=== PATIENT | female | born 1940 | race Caucasian/White ===

== ENCOUNTER → 2016-09-30 | Outpatient (CLI) | payer MEDICARE, OTHER ==
[2015-08-06 08:54] VITALS: BP 146/66
[~2016-09-30] MED LIST: CALC600T23 PO; CARV6.252 PO; CHOL400T14 PO; CITA20TA5 PO; HYDR25TA9 PO; IRON1TAB30 PO; LACT1CAP29 PO; LOSA100T6 PO; LOVA20TA2 PO; MAGN400T3 PO; METF500T4 PO; MULT-208 PO; OMEP20TA8 PO; POTA20TA4 PO
--- NOTE | 2016-09-30 10:14 | RAD ---
MRI Thoracic Spine without contrast History: Back pain for 6 months, history of lumbar laminectomy Technique: Multiplanar, multi sequential noncontrast MR imaging was performed of the thoracic spine. Contrast: None Comparison: December 18, 2014 Findings: There is now fairly prominent edema of the T12 and L1 vertebral bodies, also fluid in the T12-L1 intervertebral disc space. The thoracic vertebral body stature is overall preserved. There is minimal edema of the anterior corners and mid to inferior thoracic spine. Thoracic cord caliber is within normal limits without focal signal abnormality. There are again multilevel shallow posterior protrusions at T2-3, T4-5, T5-T6, T6-7, T7-8, T8-T9, T12-L1, and also negligible protrusions at T9-10 and T10-11. There is multilevel mild posterior epidural lipomatosis as seen previously. There is overall mild attenuation of the thecal sac greatest at T7-T8, T4-5, and T2-3. No new significant thoracic spinal stenosis is identified. There is [id number] narrowing of the left T9-T10 neural foramen by facet degenerative change. There is multilevel negligible anterior spondylolisthesis at T2-3, T5-T6, T6-7, T7-8, T8-9. There is multilevel degenerative disc disease greatest about mid thoracic levels such as at T5-T6 to T7-T8. There is again large hemangioma of the T12 vertebral body. There is moderate to large hiatal hernia. Impression: 1. Since the 2014 exam, there has been development of fairly prominent edema of the T12 and L1 vertebral bodies, also nonspecific fluid in the T12-L1 intervertebral disc space. Findings could be reactive/degenerative in etiology unless there is clinical suspicion for infectious spondylitis which is not excluded based on the imaging features. 2. There are again multilevel shallow posterior protrusions, no new significant thoracic spinal stenosis. There is degenerative disc disease greatest about mid thoracic levels. There is multilevel mild abnormal alignment. 3. There is moderate to large hiatal hernia Electronically signed by: Mamadou Mckinney MD (09/30/2016 10:11 AM) [facility] [id number]
== END | disposition home or self-care (01) ==
LOC: MRI 09:03
PROVIDERS: ATTEND Specialist
DX: M51.34 Other intervertebral disc degeneration, thoracic region (principal); K44.9 Diaphragmatic hernia without obstruction or gangrene
CPT/HCPCS: 72146

== ENCOUNTER → 2017-06-15 | Outpatient (CLI) | payer MEDICARE, OTHER ==
[2017-06-15 15:56] LABS: ISTAT CREATININE 0.7 mg/dL (0.6-1.1)
[2017-06-15] MEDS: GADOBUTROL 7.5 MMOL/7.5 ML VIAL IV (15:56)
== END | disposition home or self-care (01) ==
LOC: KCIC MRI 15:03
DX: M51.36 Other intervertebral disc degeneration, lumbar region (principal); M43.16 Spondylolisthesis, lumbar region; M48.05 Spinal stenosis, thoracolumbar region; M25.78 Osteophyte, vertebrae; D18.09 Hemangioma of other sites
CPT/HCPCS: 72158; 82565; A9585

== ENCOUNTER → 2017-07-05 | Outpatient (CLI) | payer MEDICARE, OTHER ==
[~2017-07-05] MED LIST changes: -CALC600T23 PO; -CARV6.252 PO; -CHOL400T14 PO; -CITA20TA5 PO; +CONTRAST GIVEN MC; -HYDR25TA9 PO; -IRON1TAB30 PO; -LACT1CAP29 PO; +LIDOCAINE 1% Multi-Dose 50 ML VIAL. INJ; -LOSA100T6 PO; -LOVA20TA2 PO; -MAGN400T3 PO; -METF500T4 PO; -MULT-208 PO; -OMEP20TA8 PO; -POTA20TA4 PO
[2017-07-05] MEDS: LIDOCAINE WITH 8.4% SOD BICARB 3 ML DISP.SYRIN. INJ (09:40)
[2017-07-05] MEDS: IOHEXOL 180 MG/ML 10 ML VIAL. IJ (09:45)
== END | disposition home or self-care (01) ==
LOC: RAD 08:37
DX: M48.07 Spinal stenosis, lumbosacral region (principal); M41.86 Other forms of scoliosis, lumbar region; M77.8 Other enthesopathies, not elsewhere classified; K44.9 Diaphragmatic hernia without obstruction or gangrene; M43.26 Fusion of spine, lumbar region; M53.3 Sacrococcygeal disorders, not elsewhere classified
CPT/HCPCS: 72132; 72265; Q9965

== ENCOUNTER → 2017-07-22 | Outpatient (CLI) | payer MEDICARE, OTHER | END | disposition home or self-care (01) | LOC: PNCL 08:27 | DX: M54.16 Radiculopathy, lumbar region (principal); I11.9 Hypertensive heart disease without heart failure; J45.909 Unspecified asthma, uncomplicated | CPT/HCPCS: G0463 ==

== ENCOUNTER → 2017-08-30 | Outpatient (CLI) | payer MEDICARE, OTHER ==
[~2017-08-30] MED LIST changes: -CONTRAST GIVEN MC; -LIDOCAINE 1% Multi-Dose 50 ML VIAL. INJ; +LIDOCAINE 1% PF 2 ML VIAL.
== END | disposition home or self-care (01) ==
LOC: PNCL 12:59
DX: M48.062 Spinal stenosis, lumbar region with neurogenic claudication (principal); M96.1 Postlaminectomy syndrome, not elsewhere classified; M54.16 Radiculopathy, lumbar region; I11.9 Hypertensive heart disease without heart failure; K21.9 Gastro-esophageal reflux disease without esophagitis; E78.00 Pure hypercholesterolemia, unspecified; F32.9 Major depressive disorder, single episode, unspecified; J45.909 Unspecified asthma, uncomplicated; Z90.49 Acquired absence of other specified parts of digestive tract; Z88.5 Allergy status to narcotic agent; Z88.1 Allergy status to other antibiotic agents; Z90.710 Acquired absence of both cervix and uterus; Z96.653 Presence of artificial knee joint, bilateral; M19.90 Unspecified osteoarthritis, unspecified site; E11.9 Type 2 diabetes mellitus without complications; Z79.84 Long term (current) use of oral hypoglycemic drugs; Z98.890 Other specified postprocedural states
CPT/HCPCS: 63650; C1778

== ENCOUNTER → 2017-09-03 | Outpatient (CLI) | payer MEDICARE, OTHER | END | disposition home or self-care (01) | LOC: PNCL 11:59 | DX: M54.16 Radiculopathy, lumbar region (principal); I11.9 Hypertensive heart disease without heart failure; E11.9 Type 2 diabetes mellitus without complications; E78.00 Pure hypercholesterolemia, unspecified; K21.9 Gastro-esophageal reflux disease without esophagitis; J45.909 Unspecified asthma, uncomplicated | CPT/HCPCS: G0463 ==

== ENCOUNTER → 2018-01-06 | Outpatient (CLI) | payer MEDICARE, OTHER ==
[2017-07-05 10:49] VITALS: BP 124/66
[~2018-01-06] MED LIST changes: +BUDE0.25 NEB; +BUPIVACAINE MPF 0.25% 30 ML VIAL. ONE; +CALC600T23 PO; +CARV12.52 PO; +CARV6.252 PO; +CHOL400T14 PO; +CITA20TA6 PO; +HYDR25TA9 PO; +IOHEXOL 180 MG/ML 10 ML VIAL. ONE; +IRON1TAB30 PO; +LACT1CAP29 PO; -LIDOCAINE 1% PF 2 ML VIAL.; +LIDOCAINE 1% PF 2 ML VIAL. ONE; +LOSA100T7 PO; +LOVA20TA2 PO; +MAGN400T3 PO; +METF500T16 PO; +MULT-208 PO; +OMEP20TA8 PO; +POTA20TA4 PO; +methylPREDNISolone ACETATE 80 MG/ML VIAL. ONE
--- NOTE | 2018-01-07 03:01 | PAIN ---
DATE OF SERVICE: 01/06/2018 PROGRESS NOTE FOR PAIN CLINIC DIAGNOSES: 1. Lumbar radiculopathy with lumbar post-laminectomy syndrome and spinal stenosis with neurogenic claudication. 2. Right greater trochanteric bursitis. HISTORY OF PRESENT ILLNESS: The patient is a 77-year-old female who returns for followup status post recent spinal cord stimulator implant, which the patient did very well with. The patient reports her pain is still somewhat more noticeable than she had expected from the excellent results, she got from the temporary lead in the trial period spinal cord stimulator. The patient reports still decreased the pain by about 50% overall but not as good as it was when it was first implanted and not like the trial. The patient reports it has been reprogramed several times and we had her returned today for this complaint as well as some left hip joint pain that she has been complaining of as well. Mr. Adonay Norman from [email or web address] is here as well to examine the stimulator and reprogramed as it is necessary. The patient reports the pain is at 8 on a scale of 10 at its worst, 7-8 on average and a 5 at its least and is a 7 today. The patient reports it is an aching, tingling, radiating, not constant as it was previously but the left hip is very, very tender on the lateral aspect. She has had this treated with her orthopedic surgeon previously but good results as well. The patient reports no new motor or sensory deficits. Reports it awakens her from sleep but only about every 7 hours or so and does not awaken her every night. PHYSICAL EXAMINATION: VITAL SIGNS: The patient's blood pressure 129/71, pulse 71, respirations 16 and temperature 98.0 degrees Fahrenheit. Weight is 181 pounds. GENERAL: The patient is awake, alert, oriented, appropriate and very pleasant demeanor. The patient is accompanied by her spouse. HEENT: Head shows normocephalic and atraumatic. Extraocular movements are intact and symmetrical. Oral cavity: Mucous membranes are moist and pink. Dentition is intact. NECK: Shows anterior throat supple without palpable lymphadenopathy noted. Swallow reflex symmetrical. CHEST: Shows normal with inspection. Breath sounds clear to auscultation bilaterally. HEART: Shows S1 and S2 clear. No murmurs auscultated. ABDOMEN: Soft, nontender and nondistended. No palpable organomegaly is noted. No rebound or guarding demonstrated. BACK: Shows spine grossly in the midline. Normal-appearing thoracic kyphosis, some minor flattening of lumbar lordotic curvature. Well healed recent surgical scar and easily palpable spinal cord stimulator battery in the left lower paraspinous region, which has a well-healed surgical scar. No significant tenderness and has some very mild mobility. The patient's back shows good rotational motion as well as extension and flexion without exacerbation of pain. No tenderness over the sacrum or sacroiliac regions over the spinous processes. EXTREMITIES: The patient's lower extremities show deep tendon reflexes at 1+ in the patellar and tendo-calcaneus tendons are equal. Motor exam is strong with approximately 4 on a scale of 5, but equal and symmetrical dorsiflexion, extension, quadriceps and hamstring flexion bilaterally. The patient's left hip shows significant tenderness with palpation over the left greater trochanter, but is very severely tender with the patient withdrawing from the examining hand, right side is nontender. Peripheral pulses are 1+ posterior tibial. No peripheral edema is noted. Options were discussed with the patient. The patient's old chart was reviewed as well as her current medication regimen updated. Current review of systems updated today as well. We will first x-ray her back to evaluate the spinal cord stimulator lead placement. This was performed and shown to be in very good situation in the midline and posterior in the epidural space on lateral view with apparent movement of the leads inferiorly by about 1 vertebral level with each of them but moves symmetrically and each is identical to its position next to each other but inferior by about one spinal vertebral level. Mr. Adonay Norman will reprogrammed this today for the changes in the level, situation of the leads. Also discussed a left greater trochanteric bursa injection. The patient would like to proceed with this. She has done well with these in the past. Risks were discussed including but not limited to bleeding, infection, possibility of intravascular injection sequelae, spread of local anesthetic and numbness, side effects of steroid medication, exposure to fluoroscopy as well as poor results regarding pain control. The patient understands and wished to proceed. The patient will return to the clinic in approximately 2 weeks for followup, was counseled as to return appointment, activity level and side effects to be aware of. The patient also will contact [email or web address] regarding the spinal cord stimulator reprogramming within a few days as well as requested. DIAGNOSIS: Left greater trochanteric bursitis. PROCEDURE: Left greater trochanteric bursa injection using C-arm fluoroscopic guidance under sterile prep and drape using local anesthetic. MEDICATION INJECTED: A total of 80 mg Depo-Medrol plus total 2 mL of 0.25% bupivacaine after negative aspiration at the site and 1.5 mL of Isovue for contrast. CONDITION AT DISCHARGE: Stable. The patient tolerated the procedure well and had no complications. GIORGIO ANDERSON MD DR: ELDA/morena JOB#: [id number] / [id number]
== END | disposition home or self-care (01) ==
LOC: PNCL 13:23
PROVIDERS: ATTEND Anesthesiology
DX: M70.62 Trochanteric bursitis, left hip (principal); M48.062 Spinal stenosis, lumbar region with neurogenic claudication; M96.1 Postlaminectomy syndrome, not elsewhere classified; M70.61 Trochanteric bursitis, right hip; M54.16 Radiculopathy, lumbar region; Z88.2 Allergy status to sulfonamides; Z88.6 Allergy status to analgesic agent
CPT/HCPCS: 20610; 77002; J1040; J3490; Q9965

== ENCOUNTER → 2018-04-25 | Outpatient (CLI) | payer MEDICARE ==
[2017-07-05 10:49] VITALS: BP 124/66
[~2018-04-25] MED LIST changes: +ALBU2.5V8 INH; +BUPIVACAINE MPF 0.25% 10 ML VIAL. ONE; -BUPIVACAINE MPF 0.25% 30 ML VIAL. ONE; +CARV12.511 PO; -CARV12.52 PO; +CARV6.2511 PO; -CARV6.252 PO; +CYAN10005 PO; +HYDR-2145 PO; -HYDR25TA9 PO; -LIDOCAINE 1% PF 2 ML VIAL. ONE; +LOSA100T14 PO; -LOSA100T7 PO; +methylPREDNISolone ACETATE 40 MG/ML VIAL. ONE
--- NOTE | 2018-04-26 01:29 | PAIN ---
DATE OF SERVICE: 04/25/2018 PROGRESS NOTE FOR PAIN CLINIC DIAGNOSES: 1. Lumbar radiculopathy with post lumbar laminectomy syndrome, lumbar spinal stenosis with neurogenic claudication. 2. Bilateral greater trochanteric bursitis. HISTORY OF PRESENT ILLNESS: The patient is a 77-year-old female who returns for followup, last seen 01/06/2018. The patient had a spinal cord stimulator implanted in September 2017 and we did a greater trochanteric bursa injection on the left on 01/06/2018 with about 90% improvement for the first 2 months or so. The patient reports that after that, the pain began to return in the lateral aspect of the hip and now is bilateral, worse on the left, but present on the right as well with some radiation to the lateral thigh, mostly with walking and standing, changing positions, getting up from a seated position, especially. The patient reports it is aching and dull, becoming more severe at times, better with sitting or lying down, generally does not awaken her from sleep, but can, on the left side. The patient reports it is an 8 on a scale of 10 at its worst, 7 on average, 6 at its least and is a 6 today. The patient reports it is aching, stabbing, burning at times as well, becoming more intense with activity. The patient reports no new motor or sensory deficits, no new bowel or bladder incontinence. Initially, she was doing much better, walking, standing, sitting especially was much more comfortable. PHYSICAL EXAMINATION: VITAL SIGNS: Today, the patient's blood pressure is 123/66, pulse 76, respirations are 18, temperature is 97.5 degrees Fahrenheit and weight is 195 pounds. GENERAL: The patient is awake, alert, oriented, appropriate, very pleasant demeanor. The patient is accompanied by her . HEENT: Head shows normocephalic, atraumatic. Extraocular movements intact and symmetrical. Oral cavity: Mucous membranes moist and pink. Dentition is intact. NECK: Shows anterior throat supple without palpable lymphadenopathy noted. Swallow reflex symmetrical. CHEST: Shows normal on inspection. Breath sounds clear to auscultation bilaterally. HEART: Shows S1, S2 clear. No murmurs auscultated. ABDOMEN: Soft, nontender, nondistended. No palpable organomegaly is noted. No rebound or guarding demonstrated. BACK: Shows spine grossly in the midline. Slightly exaggerated thoracic kyphosis and minor flattening of lumbar lordotic curvature. Lumbar paraspinous muscle shows symmetrical on inspection, with palpation shows some mild tenderness in the inferior aspect of the lumbar paraspinous musculature, but only diffusely bilaterally. The patient has well-healed surgical scarring noted and easily palpable spinal cord stimulator as well without tenderness over the stimulator battery itself. EXTREMITIES: The patient's lower extremities show deep tendon reflexes at 1+ in the patellar and tendo calcaneus tendons. Motor exam is normal at 4/5, but equal and symmetrical dorsiflexion, extension, quadriceps and hamstring flexion. Peripheral pulses are 1+ posterior tibial. No peripheral edema is noted. The patient's lateral hip shows very significant tenderness, especially over the left side greater than the right on the lateral aspect of the greater trochanter, very tender with palpation with some radiation towards the knee on the lateral aspect of the thigh present bilaterally, again worse on the left than the right, but present bilaterally. Options were discussed with the patient. The patient's old chart was reviewed as her current medication regimen updated. Current review of systems updated today as well and we will proceed with bilateral greater trochanteric bursa injection with fluoroscopic guidance today. Risks were again discussed including, but not limited to, bleeding, infection, possibility of intravascular injection sequelae, spread of local anesthetic and numbness, side effects of steroid medication, exposure to fluoroscopy and poor results regarding pain control. The patient understands and wished to proceed. The patient will return to the clinic in approximately 2 weeks for followup, was counseled on his return appointment, activity level and side effects to be aware of. DIAGNOSIS: Greater trochanteric bursitis bilaterally. PROCEDURE: Bilateral greater trochanteric bursa injection using C-arm fluoroscopic guidance under sterile prep and drape using local anesthetic. MEDICATIONS INJECTED: A total of 120 mg Depo-Medrol plus total of 4 mL of 0.25% bupivacaine, 2 mL at each side after negative aspiration and 2 mL of Isovue for contrast. CONDITION ON DISCHARGE: Stable. The patient tolerated the procedure well, had no complications. GIORGIO ANDERSON MD DR: ELDA/morena JOB#: [id number] / [id number]
== END | disposition home or self-care (01) ==
LOC: PNCL 10:32
PROVIDERS: ATTEND Anesthesiology
DX: M70.61 Trochanteric bursitis, right hip (principal); M70.62 Trochanteric bursitis, left hip; M48.062 Spinal stenosis, lumbar region with neurogenic claudication; M96.1 Postlaminectomy syndrome, not elsewhere classified; M54.16 Radiculopathy, lumbar region; Z88.2 Allergy status to sulfonamides; Z88.5 Allergy status to narcotic agent
CPT/HCPCS: 20610; 77002; J1030; J1040; J3490; Q9965; 20605

== ENCOUNTER → 2018-05-30 | Outpatient (CLI) | payer MEDICARE, OTHER ==
[2017-07-05 10:49] VITALS: BP 124/66
--- NOTE | 2018-05-30 22:56 | PAIN ---
DATE OF SERVICE: 05/30/2018 DIAGNOSES: 1. Lumbar radiculopathy with lumbar post-laminectomy syndrome and lumbar spinal stenosis with neurogenic claudication. 2. Bilateral greater trochanteric bursitis. HISTORY OF PRESENT ILLNESS: The patient is a 77-year-old female who returns for followup status post spinal cord stimulator placement, which was done on 10/08/2017. The patient had permanent implant at that time, returned at last visit in 04/25/2018 with significant pain in bilateral lateral hips. The patient had bilateral trochanteric bursa injection with very good results, about 90% improvement within 2 weeks. The pain was slowly returning in both the legs, the patient reports now worse on the left side than the right, difficulty with sleeping secondary to the pain, which is usually on her left side as she tosses and turns at night and it is keeping her from sleep. The patient reports that initially she was increasing distance walking, doing greater activity at home and traveling and sleeping better, but now the pain returning. The patient reports it is 9 on a scale of 10 at its worst, 8 on average, 6 at its least and is 8 today. The patient reports it is aching, radiating, becoming more severe, more intense, again worse on the left side, better with standing as well as better with lying down as well, especially on the left side. PHYSICAL EXAMINATION: VITAL SIGNS: The patient's blood pressure is 109/60, pulse 68, respirations 16, temperature 98.4 degrees Fahrenheit, weight is 180 pounds. GENERAL: The patient is awake, alert, oriented, appropriate, very pleasant demeanor. HEENT: Head is normocephalic, atraumatic. Extraocular movements are intact and symmetrical. Oral cavity: Mucous membranes moist and pink. Dentition is intact. NECK: Shows anterior throat supple without palpable lymphadenopathy noted. Swallow reflex symmetrical. CHEST: Shows normal with inspection. Breath sounds clear to auscultation bilaterally. HEART: Shows S1, S2 clear. No murmurs auscultated. ABDOMEN: Soft, nontender, nondistended. No palpable organomegaly is noted. No rebound or guarding demonstrated. BACK: The patient's back shows spine grossly in the midline. Normal-appearing thoracic kyphosis and lumbar lordotic curvature with some flattening of lumbar lordotic distribution, but well-healed surgical scarring from recent spinal cord stimulator placement. EXTREMITIES: The patient's lower extremities show deep tendon reflexes 1+ in the patellar and tendo calcaneus tendons. Motor exam is strong with approximately 4 on a scale of 5, but equal and symmetrical dorsiflexion, extension, quadriceps and hamstring flexion without abnormalities. Peripheral pulses are 1+ posterior tibia. No peripheral edema is noted bilaterally. Over the lateral aspect of the greater trochanters bilaterally there is significant tenderness with palpation, again worse on the left side than the right, but significant tenderness without specific radiation. The patient does show some tenderness with standing and abducting the legs, both left and right to fairly equal degree as far as pain, but again the patient reports the pain generally worse on the left side. Options were discussed with the patient. The patient's old chart was reviewed as her current medication regimen updated. Current review of systems updated today as well. We will proceed with bilateral greater trochanteric bursa injections under fluoroscopic guidance. Risks were again discussed including, but not limited to bleeding, infection, possibility of intravascular injection sequelae, spread of local anesthetic and numbness, side effects of steroid medication, exposure to fluoroscopy and poor results regarding pain control. The patient understands and wished to proceed. The patient will return to clinic in approximately 2 weeks for followup, was counseled on return appointment, activity level and side effects to be aware of. DIAGNOSIS: Bilateral greater trochanteric bursitis. PROCEDURES: Bilateral greater trochanteric bursa injection using C-arm under fluoroscopic guidance under sterile prep and drape using local anesthetic. MEDICATION INJECTED: A total of 120 mg Depo-Medrol, 60 mg per side and total of 4 mL of 0.25% bupivacaine, 2 mL per side with negative aspiration at each injection site as well as a total of 2 mL of Isovue for contrast. CONDITION AT DISCHARGE: Stable. The patient tolerated the procedure well, had no complications. GIORGIO ANDERSON MD DR: ELDA/morena JOB#: [id number] / [id number]
== END | disposition home or self-care (01) ==
LOC: PNCL 10:32
PROVIDERS: ATTEND Anesthesiology
DX: M70.61 Trochanteric bursitis, right hip (principal); M70.62 Trochanteric bursitis, left hip; M96.1 Postlaminectomy syndrome, not elsewhere classified; M48.062 Spinal stenosis, lumbar region with neurogenic claudication; M54.16 Radiculopathy, lumbar region; Z88.2 Allergy status to sulfonamides; Z88.5 Allergy status to narcotic agent
CPT/HCPCS: 20610; 77002; J1030; J1040; J3490; Q9965; 20605

== ENCOUNTER → 2018-06-29 | Outpatient (CLI) | payer MEDICARE, OTHER ==
[2017-07-05 10:49] VITALS: BP 124/66
--- NOTE | 2018-06-30 00:52 | PAIN ---
DATE OF SERVICE: 06/29/2018 PROGRESS NOTE FOR PAIN CLINIC DIAGNOSES: 1. Lumbar radiculopathy with post-lumbar laminectomy syndrome, spinal stenosis with neurogenic claudication. 2. Bilateral greater trochanteric bursitis. HISTORY OF PRESENT ILLNESS: The patient is a 77-year-old female who returns for followup status post spinal cord stimulator implantation and is doing quite well with this. The patient reports about 90% improvement overall. She had her program modified yesterday as she was having some increased pain in her low back, but is doing much better today. The patient reports her main complaint is bilateral lateral hip pain and she has had previously responded very well to greater trochanteric bursa injections. Most recently, it was on 05/30/2018. The patient reports about 95% improvement with that. The patient reports the pain is returning now, mostly noticed with walking, standing and stooping down, especially reaching to her right side or reaching to the right side lower than her knee. She reports the pain is significant at that point. The patient reports it is aching and tingling, sometimes radiating, sometimes constant, severe, although she has been walking with much better ease and comfort. She walked the entire distance of the [employer] recently and reports she could never have done this before her stimulator. The patient reports it as a 9 on a scale of 10 at its worst, 8 on average, 7 at its least over the past week and again limited to the lateral hips. The patient reports she is sleeping well at night. It does not awaken her from sleep, even when she is laying on her right or left side. No new motor or sensory deficits, bit better with distance walking, doing household activities and travelling much easier and with greater ease and comfort. PHYSICAL EXAMINATION: VITAL SIGNS: The patient's blood pressure is 140/65, pulse 70, respirations 18 and temperature 98.4 degrees Fahrenheit. Height 5 feet 4 inches, weight is 175 pounds. GENERAL: The patient is awake, alert, oriented and appropriate. She has a very pleasant demeanor. HEENT EXAMINATION: Shows normocephalic, atraumatic. Extraocular movements are intact and symmetrical. Oral cavity, mucous membranes are moist and pink. Dentition is intact. NECK: Shows anterior throat supple, without palpable lymphadenopathy noted. Swallow reflex is symmetrical. CHEST: Normal on inspection. Breath sounds are clear to auscultation bilaterally. HEART: Shows S1, S2 clear. No murmurs auscultated. ABDOMEN: Soft, nontender and nondistended. No palpable organomegaly is noted. No rebound or guarding demonstrated. BACK: Shows the spine grossly in the midline. Normal-appearing thoracic kyphosis and some minor flattening of the lumbar lordotic curvature, and well-healed surgical scars noted in the left paramedian aspect from the spinal cord stimulator generator. EXTREMITIES: The patient's lower extremities shows deep tendon reflexes at 1+ in the patellar and tendo calcaneus tendons are equal. Motor exam is approximately 4 on a scale of 5, but symmetrical and equal bilaterally. With palpation over the greater trochanter, there is significant tenderness on the left side compared to the right; right is moderately tender, but still fairly significant and the left side is very severely tender with palpation with some minor radiation to the lateral inferior thigh on the left, but not the right. Peripheral pulses are 1+ posterior tibial. No peripheral edema bilaterally. Options were discussed with the patient. The patient's old chart was reviewed as was her current medication regimen updated. Current review of systems updated today as well. We will proceed with bilateral greater trochanteric bursa injections under fluoroscopic guidance. Risks were again discussed, including, but not limited to bleeding, infection, possibility of intravascular ejection sequelae, spread of local anesthetic and numbness, side effects of steroid medication, exposure to fluoroscopy and poor results regarding pain control. The patient understands and wishes to proceed. The patient will return to the clinic in approximately 2 weeks for followup. She was counseled as to her return appointment, activity level and side effects to be aware of. DIAGNOSES: Bilateral greater trochanteric bursitis. PROCEDURES: Bilateral greater trochanteric bursa injection using C-arm fluoroscopic guidance under sterile prep and drape using local anesthetic. MEDICATIONS INJECTED: A total of 120 mg of Depo-Medrol plus 3 mL total of contrast. CONDITION ON DISCHARGE: Stable. The patient tolerated the procedure well, had no complications. GIORGIO ANDERSON MD DR: ELDA/morena JOB#: [id number] / [id number]
== END | disposition home or self-care (01) ==
LOC: PNCL 10:31
PROVIDERS: ATTEND Anesthesiology
DX: M70.61 Trochanteric bursitis, right hip (principal); M70.62 Trochanteric bursitis, left hip; M48.062 Spinal stenosis, lumbar region with neurogenic claudication; M54.16 Radiculopathy, lumbar region; M96.1 Postlaminectomy syndrome, not elsewhere classified; Z88.2 Allergy status to sulfonamides; Z88.5 Allergy status to narcotic agent
CPT/HCPCS: 20610; 77002; J1030; J1040; J3490; Q9965; 20605

== ENCOUNTER → 2018-09-01 | Outpatient (CLI) | payer MEDICARE, OTHER ==
[2017-07-05 10:49] VITALS: BP 124/66
[~2018-09-01] MED LIST changes: -BUPIVACAINE MPF 0.25% 10 ML VIAL. ONE; -IOHEXOL 180 MG/ML 10 ML VIAL. ONE; -methylPREDNISolone ACETATE 40 MG/ML VIAL. ONE; -methylPREDNISolone ACETATE 80 MG/ML VIAL. ONE
--- NOTE | 2018-09-01 11:52 | PAIN ---
DATE OF SERVICE: 09/01/2018 DIAGNOSES: Lumbar radiculopathy with lumbar post-laminectomy syndrome, spinal stenosis with neurogenic claudication and bilateral greater trochanteric bursitis. HISTORY OF PRESENT ILLNESS: The patient is a 77-year-old female who returns for followup status post spinal cord stimulator placement about 1 year ago. The patient reports she also has had significant pain in the greater trochanteric bursa, the left greater than right. We had performed greater trochanteric bursa injections, which she did well with about 80% improvement only for about 2 weeks or so. The patient reports she does not wish any further injections at this time as the pain relief is not lasting long enough, but still has some significant pain in the back and legs. She is having reprogramming today done with Mr. Adonay Norman from [employer] for the spinal cord stimulator. The patient reports pain is a 9 on a scale of 10 at its worst in the past week, 8 on average, 7 at its least and is a 7 today. The patient reports it is a tingling, aching across the low back, into the hips bilaterally, again worse on the left than the right. The patient reports no new motor or sensory deficits, no new bowel or bladder incontinence or other complaints. Worse with standing, walking and better with sitting. Initially, she had increased her distance walking and still feels like she is doing quite well with the spinal cord stimulator with about 80% improvement from that overall. The patient reports no new changes. No new bowel or bladder incontinence or other complaints. PHYSICAL EXAMINATION: VITAL SIGNS: The patient's blood pressure is 126/61, pulse 62, respirations 16, temperature 97.9 degrees Fahrenheit. GENERAL: The patient is awake, alert, oriented, appropriate, very pleasant demeanor. The patient is accompanied by her . HEENT: Head shows normocephalic, atraumatic. Extraocular movements are intact and symmetrical. Oral cavity: Mucous membranes moist and pink. Dentition intact. NECK: Shows anterior throat supple without palpable lymphadenopathy noted. Swallow reflex symmetrical. CHEST: Shows normal on inspection. Breath sounds are clear to auscultation bilaterally. HEART: Shows S1, S2 clear. No murmurs auscultated. ABDOMEN: Soft, nontender, nondistended. No palpable organomegaly is noted. No rebound or guarding demonstrated. BACK: Shows spine grossly in the midline. Well-healed surgical scarring is noted in the lumbar distribution as well as easily palpable spinal cord stimulator generator to the left of midline, which is nontender with palpation. EXTREMITIES: Lower extremities show deep tendon reflexes at 1+ in the patellar and tendo calcaneus tendons. Motor exam is strong with 4/5 dorsiflexion, extension, quadriceps and hamstring flexion, but equal and symmetrical. Peripheral pulses are 1+ posterior tibial. No peripheral edema is noted bilaterally. Options were discussed with the patient. The patient's old chart was reviewed as his current medication regimen updated. Current review of systems updated today as well. We will hold on any further injections at this time. The patient will have the reprogramming performed today with the spinal cord stimulator and continue strengthening and stretching exercises. We will have her follow up in approximately 2 weeks or sooner if the spinal cord stimulator is not covering some of the pain in the lower extremities as well. The patient will maintain her activity level as tolerated also. GIORGIO ANDERSON MD DR: ELDA/morena JOB#: [id number] / [id number]
== END | disposition home or self-care (01) ==
LOC: PNCL 09:08
PROVIDERS: ATTEND Anesthesiology
DX: M48.062 Spinal stenosis, lumbar region with neurogenic claudication (principal); M54.16 Radiculopathy, lumbar region; M96.1 Postlaminectomy syndrome, not elsewhere classified; M70.62 Trochanteric bursitis, left hip; M70.61 Trochanteric bursitis, right hip
CPT/HCPCS: G0463

== ENCOUNTER → 2019-08-25 | Outpatient (CLI) | payer MEDICARE, OTHER ==
[2017-07-05 10:49] VITALS: BP 124/66
[~2019-08-25] MED LIST changes: +ALPR1TAB6 PO; +CYAN-25 PO; -CYAN10005 PO; +FERR142T13 PO; -MAGN400T3 PO; +MAGN400T5 PO; +OXYC1TAB19 PO; +TRAZ-118 PO
== END | disposition home or self-care (01) ==
LOC: LAB 14:01
PROVIDERS: ATTEND Orthopaedic Surgery
DX: Z11.59 Encounter for screening for other viral diseases (principal); M70.42 Prepatellar bursitis, left knee; Z88.2 Allergy status to sulfonamides; Z88.5 Allergy status to narcotic agent
CPT/HCPCS: C9803; U0003; 36415

== ENCOUNTER 2019-08-29 08:25 | Day surgery (SDC) | payer MEDICARE, OTHER ==
[~2019-08-29] VITALS: Ht 163.8 cm; Wt 80.5 kg
[~2019-08-29 08:25] MED LIST changes: +DEXAMETHASONE SOD PHOS 4 MG/ML VIAL ONE; +FAMOTIDINE 20 MG/2 ML VIAL ONE; +IV RINGERS,LACTATED 1000ML 1,000 ML IV SCH; +LIDOCAINE 2% PF 5 ML VIAL. ONE; +ONDANSETRON PF 4 MG/2 ML VIAL. ONE; -OXYC1TAB19 PO; +PROCHLORPERAZINE 10 MG/2 ML VIAL. IV PRN; +PROPOFOL 10 MG/ML (20ML) VIAL. IV ONE; +fentaNYL PF VIAL 100 MCG/2 ML VIAL IV PRN
[2019-08-29] MEDS ORDERED: INSULIN LISPRO 100 UNIT/ML 3ML VIAL for OP,RR ONLY. SQ PRN (09:00)
--- NOTE | 2019-08-29 09:07 | EKG ---
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
[2019-08-29 09:15] LABS: BASO % 0 % (0-3); EOS # 0.2 x10^3/uL (0.0-0.7); EOS % 3 % (0-3); HEMATOCRIT 36.9 % (36.0-47.0); HEMOGLOBIN 12.8 g/dL (12.0-15.5); LYMPH # 1.6 x10^3/uL (1.0-4.8); LYMPH % 21 % (24-48); MEAN CORPUSCULAR HEMOGLOBIN 32 pg (25-35); MEAN CORPUSCULAR HGB CONC 35 g/dL (31-37); MEAN CORPUSCULAR VOLUME 92 fL (79-100); MONO # 0.6 x10^3/uL (0.0-1.1); MONO % 8 % (0-9); NEUT # 5.1 x10^3/uL (1.8-7.7); NEUT % 68 % (31-73); PLATELET COUNT 246 x10^3/uL (140-400); RED BLOOD COUNT 4.03 x10^6/uL (3.50-5.40); RED CELL DISTRIBUTION WIDTH 13.3 % (11.5-14.5); WHITE BLOOD COUNT 7.6 x10^3/uL (4.0-11.0)
[2019-08-29 09:25] LABS: CALCIUM 9.2 mg/dL (8.5-10.1); CREATININE 0.7 mg/dL (0.6-1.0); GFR 80.9; POTASSIUM 4.1 mmol/L (3.5-5.1)
[2019-08-29] MEDS ORDERED: ROPIVacaine 0.2% PF 10 ML VIAL. ONE (09:37)
[2019-08-29] MEDS ORDERED: GLYCOPYRROLATE 1 MG/5 ML VIAL. ONE (09:53)
[2019-08-29] MEDS ORDERED: ceFAZolin 2GM PREMIX 2 GM/50 ML BAG IV ONE (10:00)
[2019-08-29] MEDS ORDERED: fentaNYL PF VIAL 100 MCG/2 ML VIAL ONE (10:04)
[2019-08-29] MEDS ORDERED: SEVOFLURANE 61 TO 120 MINUTES. IH ONE (10:26)
[2019-08-29] MEDS ORDERED: OXYC1TAB19 PO (11:25)
--- NOTE | 2019-08-29 11:27 | DISCH ---
DISCHARGE INSTRUCTIONS Condition on Discharge Condition on Discharge: Stable Activity After Discharge Activity Instructions for Disc: Progressive ambulation Weight Bearing Status after Di: As tolerated Diet after Discharge Diet after Discharge: Diabetic No Calorie Level Wound Incision Care Wound/Incision Care: Change dressing (May remove dressing in 2 days may then shower no soaking until sutures removed) Contacting the [facility] after DC Call your doctor for: Concerns you may have Follow-Up Follow up with: Dr. Morales 7 to 10 days AYSHA MORALES MD Aug 29, 2019 11:27
[2019-08-29] MEDS ORDERED: oxyCODONE/APAP 7.5/325 1 TAB TABLET PO ONE (11:30)
[2019-08-29 11:45] VITALS: BP 152/62
--- NOTE | 2019-08-29 16:07 | PDOC4 ---
Operative Note Operative Note Date of surgery: 08/29/2019 Preoperative diagnosis: Refractory trochanteric bursitis left hip Postoperative diagnosis: Same Operative procedure: Left hip arthroscopy release of iliotibial band debridement trochanteric bursa Surgeon: Carmen Anesthesia: General Estimated blood loss: 15 cc Complications: None Operative indications: Please see my orthopedic clinic note for detailed operative indications but note that Verenice has undergone multiple injections for trochanteric bursitis but with refractory return of her pain despite injections stretching physical therapy activity modification. We have talked about the operative treatment and release of the iliotibial band debridement of the bursa and the possibility of continued pain weakness infection nerve or blood vessel damage among others. She is severely limited in her pain and does want to proceed with more definitive treatment having given informed consent Operative text: Patient was identified procedure verified patient placed in the supine position on the operating table. After adequate amounts of general anesthesia were administered she was placed in the decubitus position left side up using the Stulberg hip positioner all bony prominences were well-padded and the left hip was prepped and draped in standard sterile fashion. After timeout was performed patient procedure identified and verified arthroscopic portals were placed proximal and distal to the greater trochanter which was definitively located with a spinal needle. After visualization of the iliotibial band longitudinal release was carried out with the bipolar electrocautery it spread open nicely and debridement of the trochanteric bursa was carried out with the arthroscopic shaver and bipolar electrocautery and release was carried out from distal to the greater trochanter where vastus lateralis fascia was visualized to the muscle tendon junction area of the vastus medialis and the hip was taken through external/internal rotation to verify release of the pressure on the trochanter. Arthroscopic fluid was drained and portals closed with nylon suture sterile dressings were applied patient was returned to recovery room in stable condition having tolerated procedure well AYSHA MALIK MD Aug 29, 2019 16:07
== END 2019-08-29 12:40 | disposition home or self-care (01) ==
LOC: SURG 08:25
PROVIDERS: ATTEND Orthopaedic Surgery
DX: M70.62 Trochanteric bursitis, left hip (principal); G43.909 Migraine, unspecified, not intractable, without status migrainosus; I10 Essential (primary) hypertension; E78.00 Pure hypercholesterolemia, unspecified; J45.909 Unspecified asthma, uncomplicated; K21.9 Gastro-esophageal reflux disease without esophagitis; K44.9 Diaphragmatic hernia without obstruction or gangrene; D64.9 Anemia, unspecified; F32.9 Major depressive disorder, single episode, unspecified; E11.42 Type 2 diabetes mellitus with diabetic polyneuropathy; Z90.49 Acquired absence of other specified parts of digestive tract; Z96.653 Presence of artificial knee joint, bilateral; Z79.899 Other long term (current) drug therapy; Z90.710 Acquired absence of both cervix and uterus; Z79.84 Long term (current) use of oral hypoglycemic drugs
CPT/HCPCS: 29999; 36415; 80048; 82962; 85025; 93005; A7015; J0696; J1100; J2405; J2704; J2795; J3010; J3490; J0690

== ENCOUNTER → 2019-10-11 | Outpatient (CLI) | payer MEDICARE, OTHER ==
[~2019-10-11] MED LIST changes: +BUPIVACAINE MPF 0.25% 10 ML VIAL. ONE; -DEXAMETHASONE SOD PHOS 4 MG/ML VIAL ONE; -FAMOTIDINE 20 MG/2 ML VIAL ONE; +IOHEXOL 180 MG/ML 10 ML VIAL. ONE; -IV RINGERS,LACTATED 1000ML 1,000 ML IV SCH; -LIDOCAINE 2% PF 5 ML VIAL. ONE; -ONDANSETRON PF 4 MG/2 ML VIAL. ONE; +OXYC1TAB19 PO; -PROCHLORPERAZINE 10 MG/2 ML VIAL. IV PRN; -PROPOFOL 10 MG/ML (20ML) VIAL. IV ONE; -fentaNYL PF VIAL 100 MCG/2 ML VIAL IV PRN; +methylPREDNISolone ACETATE 80 MG/ML VIAL. ONE
--- NOTE | 2019-10-11 11:13 | PAIN ---
DATE OF SERVICE: 10/11/2019 PROGRESS NOTE FOR PAIN CLINIC DIAGNOSES: 1. Lumbar radiculopathy with lumbar post-laminectomy syndrome, and lumbar spinal stenosis with neurogenic claudication. 2. Bilateral greater trochanteric bursitis. 3. Left sacroiliitis. HISTORY OF PRESENT ILLNESS: The patient is a 78-year-old female who returns for followup status post spinal cord stimulator placement. The patient recently had an iliotibial release on the left hip with her orthopedic surgeon, Dr. Morales about a month ago with a left hip arthroscopy. The patient reports she is improved, but still some soreness over the general left hip area since the surgery itself. The patient has done good rehabilitation, feels that she is doing much better with respect to her hip, but the pain is persistent in the low posterior aspect of the hip and the back. The patient reports that 9 on a scale of 10 at its worst over the past week, 7 on average, 3 at its least and is a 7 today. The patient reports it is aching, severe at times, radiating, worse with walking, standing, changing positions, also sitting for prolonged periods. Generally awaken her from sleep about once every 4-5 hours, but she has had taken a muscle relaxer, which has been helping her sleep recently. The patient reports no new motor or sensory deficits. No radiation to lower extremity significantly. The patient has had a spinal cord stimulator, which is working well and reports she would like to have it examined as well and possibly readjusted. The patient reports no new motor or sensory deficits or other complaints. PHYSICAL EXAMINATION: VITAL SIGNS: The patient's blood pressure 132/64, pulse 67, respirations 16, temperature 98.1 degrees Fahrenheit, weight is 177 pounds. GENERAL: The patient is awake, alert, oriented, appropriate, very pleasant demeanor. The patient is accompanied by her . HEENT: Shows normocephalic, atraumatic. Extraocular movements are intact and symmetrical. Oral cavity: Mucous membranes moist and pink. Dentition is intact. NECK: Shows anterior throat supple without palpable lymphadenopathy noted. Swallow reflex symmetrical. CHEST: Shows normal on inspection. Breath sounds are clear. No rales, rhonchi or wheezes auscultated. HEART: Shows S1, S2 clear. No murmurs auscultated. ABDOMEN: Soft, nontender, nondistended. No palpable organomegaly is noted. No rebound or guarding demonstrated. BACK: Shows spine grossly in the midline. Normal appearing thoracic kyphosis and minor flattening of lumbar lordotic curvature. Lumbar paraspinous muscle shows symmetrical with inspection with a well-healed surgical scarring noted. Easily palpable stimulator generator is palpable in the left lumbar paraspinous musculature as well with well-healed surgical scar is nontender. The patient's left sacroiliac region shows significant tenderness with palpation over the posterior superior iliac spine and inferior to this in the sacroiliac region itself, but nontender on the right. No specific radiation is demonstrated. The patient has good rotational motion of lumbar spine, both laterally as well as extension and flexion without significant increase in pain. EXTREMITIES: The patient's lower extremities show deep tendon reflexes at 1+ in patellar and tendo calcaneus tendons. Motor exam is approximately 4 on a scale of 5, but symmetrical with dorsiflexion, extension, quadriceps and hamstring flexion. The patient is using a walker to ambulate. Peripheral pulses are 1+ posterior tibia. No peripheral edema is noted. Options were discussed with the patient. The patient's old chart was reviewed as her current medication regimen updated. Current review of system updated today as well and we will proceed with a left sacroiliac joint injection today with fluoroscopic guidance. Risks were discussed including but not limited to bleeding, infection, possibility of intravascular injection sequelae, spread of local anesthetic and numbness, side effects of steroid medication, exposure to fluoroscopy and poor results regarding pain control. The patient understands and wished to proceed. The patient will return to clinic in approximately 2 weeks for followup. She was counseled on return appointment, activity level and side effects to be aware of. DIAGNOSIS: Left sacroiliitis. PROCEDURE: Left sacroiliac joint injection using C-arm fluoroscopic guidance under sterile prep and drape using local anesthetic. MEDICATION INJECTED: Total of 80 mg Depo-Medrol plus 3 mL of 0.25% bupivacaine, 1.5 mL of contrast. CONDITION AT DISCHARGE: Stable. The patient tolerated procedure well, had no complications. GIORGIO ANDERSON MD DR: ELDA/morena JOB#: [id number] / [id number]
== END | disposition home or self-care (01) ==
LOC: PNCL 10:06
PROVIDERS: ATTEND Anesthesiology
DX: M46.1 Sacroiliitis, not elsewhere classified (principal); M48.062 Spinal stenosis, lumbar region with neurogenic claudication; M96.1 Postlaminectomy syndrome, not elsewhere classified; M70.62 Trochanteric bursitis, left hip; M70.61 Trochanteric bursitis, right hip; Z79.899 Other long term (current) drug therapy
CPT/HCPCS: 27096; J1040; J3490; Q9965

== ENCOUNTER → 2020-01-11 | Outpatient (CLI) | payer MEDICARE, OTHER ==
[~2020-01-11] MED LIST changes: -BUPIVACAINE MPF 0.25% 10 ML VIAL. ONE; -IOHEXOL 180 MG/ML 10 ML VIAL. ONE; -methylPREDNISolone ACETATE 80 MG/ML VIAL. ONE
--- NOTE | 2020-01-11 15:32 | PDOC ---
Progress Note - Pain Clinic Date of Service: DOS: DATE: 01/11/20 TIME: 15:27 Diagnosis: Dx: Lumbar radiculopathy with lumbar spinal stenosis with neurogenic claudication and post lumbar laminectomy syndrome History or Present Illness: HPI: 79-year-old female returns follow-up status post spinal cord stimulator placement and recently left sacroiliac joint injection October 10 of this year. Patient has had the spinal cord stimulator now since September 2017. Patient reports her coverage has not been as adequate in the low back left lower extremity and she returns today for reassessment and verification of the leads as well as reprogramming with [employer] representative. Patient reports pain in the low back left lower extremity posterior gluteus posterior thigh posterior calf lateral thigh and calf as well as a 9 on scale 10 is worst 8-9 on average 7 its least over the past week and is an 8 today. Patient reports no loss of motor function but significant aching pain that is radiating described as constant and severe in the back and the legs. Patient reports generalized not awaken her from sleep at night she sleeps about 6 to 7 hours at a time pain is getting more noticeable when she is up and around. Reports she has been keeping the stimulator charged well and charging it daily. Patient reports no new motor or sensory deficits no new bowel or bladder incontinence Physical Exam: VS: Blood pressure is 137/68 pulse 57 respirations are 16 temperature 97.8 F weight is 176 pounds PE: PHYSICAL EXAMINATION: GENERAL: The patient is awake, alert, oriented, appropriate, very pleasant demeanor, patient accompanied by her . HEENT: Shows normocephalic, atraumatic. Extraocular movements are intact and symmetrical. NECK: Shows anterior throat supple without palpable lymphadenopathy noted. Swallow reflex symmetrical. CHEST: Shows normal on inspection. Breath sounds are clear bilaterally, no rales rhonchi wheezes auscultated. HEART: Shows S1, S2 clear. No murmurs auscultated. ABDOMEN: Soft, nontender, nondistended. No palpable organomegaly is noted. No rebound or guarding demonstrated. BACK: Shows spine grossly in the midline. Normal-appearing cervical lordotic curvature. There is slightly increased thoracic kyphosis, some minor flattening of the lumbar lordotic curvature. Well-healed surgical scarring noted in the lumbar distribution. Easily palpable spinal cord stimulator generator is left of midline in the low lumbar distribution which is mobile but nontender. lumbar paraspinous muscles show symmetrical on inspection, on palpation shows some moderate tenderness diffusely throughout the upper, middle and lower distribution of the paraspinous muscles without specific trigger points, without radiation of pain. The patient has good rotational motion of the lumbar spine, both laterally as well as extension and flexion without significant difficulty. No tenderness over the spinous processes, sacrum or sacroiliac regions. EXTREMITIES: Lower extremities show deep tendon reflexes 1+ in the patellar and tendo calcaneus tendons. Motor exam is 4 on a scale of 5 with right dorsiflexion, extension, quadriceps and hamstring flexion and 4/5 on the left. Peripheral pulses are 1+ posterior tibial. No peripheral edema is noted bilaterally. Lower extremities are warm and dry to touch, equal in color and appearance. SKIN: Shows warm and dry, good turgor. No edema. No sores, rashes or bruising throughout. Procedure: Procedure: Options were discussed with the patient. Patient's old chart was reviewed as her current medication regimen updated current review of systems updated today as well. We will have reprogramming performed by sheila willams, also verified the lead position with fluoroscopy showing superior stimulator lead at the top of the T9 endplate and the second lead juxtaposed at the top of the T10 endplate, midline and posterior with lateral view. Medication Injected: Med Injected: None Condition at Discharge: Condition at Discharge: Patient will follow up in approximately 1 week as scheduled and will be in touch with sheila willams regarding new programming parameters. Condition at discharge is stable GIORGIO ANDERSON MD Jan 11, 2020 15:32
== END ==
LOC: PNCL 14:01
PROVIDERS: ATTEND Anesthesiology
DX: M48.062 Spinal stenosis, lumbar region with neurogenic claudication (principal); M54.16 Radiculopathy, lumbar region; I10 Essential (primary) hypertension; E11.9 Type 2 diabetes mellitus without complications; K21.9 Gastro-esophageal reflux disease without esophagitis; Z88.2 Allergy status to sulfonamides; Z79.82 Long term (current) use of aspirin; Z79.899 Other long term (current) drug therapy; Z79.84 Long term (current) use of oral hypoglycemic drugs
CPT/HCPCS: G0463

== ENCOUNTER → 2020-07-02 | Outpatient (CLI) | payer MEDICARE, OTHER ==
--- NOTE | 2020-07-02 15:16 | PDOC ---
Progress Note - Pain Clinic Date of Service: DOS: DATE: 07/02/20 TIME: 15:11 Diagnosis: Dx: Lumbar radiculopathy with lumbar postlaminectomy syndrome and spinal stenosis with neurogenic claudication Bilateral greater trochanteric bursitis Left sacroiliitis History or Present Illness: HPI: 79-year-old female returns for follow-up status post spinal cord stimulator placement and most recent reprogramming January 11, 2020. Patient reports he did well for a while but the pain is returning down the low back and bilateral lower extremities more in the left than the right similar to how it did prior to the reprogramming of the stimulator. Patient reports also some pain in the neck and shoulders and she is trying to correct some of her positional postural activities such as getting a taller walker to walk with an sitting in a different position when she is watching television also reading with her head in a neutral position instead of flexed forward. Patient reports all of these things are helping but only to a small extent and gradually improving. Patient reports her pain in the back and legs is aching and sharp at times sometimes burning and tingling in the feet can be constant in the neck and shoulders with activity but better with recent ergonomic corrections. Patient rates her pain as a 8 on scale 10 is worse over the past week 8 on average 6 its least and is a 6 today. Patient reports no new motor or sensory deficits or other complaints generally sleeps well at night but can wake every 3 hours on some nights but not generally. Patient reports no difficulty with stimulation or keeping his stimulator charged. Physical Exam: VS: Blood pressure is 144/73 pulse 65 respiration 16 temperature is 97.9 F PE: PHYSICAL EXAMINATION: GENERAL: The patient is awake, alert, oriented, appropriate, very pleasant demeanor HEENT: Shows normocephalic, atraumatic. Extraocular movements are intact and symmetrical. Oral cavity: Mucous membranes moist and pink. NECK: Shows anterior throat supple without palpable lymphadenopathy noted. Swallow reflex symmetrical. CHEST: Shows normal on inspection. Breath sounds are clear bilaterally, no rales or rhonchi. HEART: Shows S1, S2 clear. No murmurs auscultated. ABDOMEN: Soft, nontender, nondistended, obese. No palpable organomegaly is noted. No rebound or guarding demonstrated. BACK: Shows spine grossly in the midline. Normal-appearing cervical lordotic curvature. There is slightly increased thoracic kyphosis, some minor flattening of the lumbar lordotic curvature. Well-healed surgical scarring is noted in the lumbar spine. Lumbar paraspinous muscles show symmetrical on inspection, on palpation shows some moderate tenderness diffusely throughout the upper, middle and lower distribution of the paraspinous muscles, without specific trigger points, without radiation of pain. The patient has good rotational motion of the lumbar spine, both laterally as well as extension and flexion without significant difficulty. EXTREMITIES: Lower extremities show deep tendon reflexes 1+ in the patellar and tendo calcaneus tendons. Motor exam is 4 on a scale of 5 with right dorsifl exion, extension, quadriceps and hamstring flexion and 4/5 on the left. Peripheral pulses are 1+ posterior tibial. No peripheral edema is noted bilaterally. Lower extremities are warm and dry to touch, equal in color and appearance. SKIN: Shows warm and dry, good turgor. No edema. No sores, rashes or bruising throughout. Procedure: Procedure: Options discussed with patient. Patient chart reviews her current medication regimen updated current review of systems updated today as well. We will have reprogramming carried out through [employer] sales representative today. Also patient was encouraged to increase postural corrections and use heat and massage therapy to the shoulders and neck also will call in [employer] patient was given instructions well side effects beware with the medication which she will start tomorrow. Patient will follow up in approximately 4 weeks or sooner as necessary. Patient will be in contact with stimulator [employer] sales representative as well with feedback regarding the change in stimulation programming. Medication Injected: Med Injected: None Condition at Discharge: Condition at Discharge: Condition at discharge is stable. GIORGIO ANDERSON MD Jul 02, 2020 15:16
== END | disposition home or self-care (01) ==
LOC: PNCL 14:09
PROVIDERS: ATTEND Anesthesiology
DX: M54.16 Radiculopathy, lumbar region (principal); M96.1 Postlaminectomy syndrome, not elsewhere classified; M48.062 Spinal stenosis, lumbar region with neurogenic claudication; M70.62 Trochanteric bursitis, left hip; M70.61 Trochanteric bursitis, right hip; M46.1 Sacroiliitis, not elsewhere classified; I10 Essential (primary) hypertension; E78.00 Pure hypercholesterolemia, unspecified; K21.9 Gastro-esophageal reflux disease without esophagitis; E11.42 Type 2 diabetes mellitus with diabetic polyneuropathy; M19.90 Unspecified osteoarthritis, unspecified site; J45.909 Unspecified asthma, uncomplicated; F32.9 Major depressive disorder, single episode, unspecified; Z90.49 Acquired absence of other specified parts of digestive tract; Z90.710 Acquired absence of both cervix and uterus; Z98.890 Other specified postprocedural states; Z79.899 Other long term (current) drug therapy; Z79.84 Long term (current) use of oral hypoglycemic drugs; Z88.2 Allergy status to sulfonamides; Z88.8 Allergy status to other drugs, medicaments and biological substances
CPT/HCPCS: G0463

== ENCOUNTER → 2020-10-30 | Outpatient (CLI) | payer MEDICARE, OTHER ==
[~2020-10-30] MED LIST changes: -LACT1CAP29 PO; +LACT1CAP37 PO
--- NOTE | 2020-10-30 20:44 | RAD ---
Sacrum and coccyx 3 views: Reason for examination: Fell one week ago with tailbone pain. There is generalized bony demineralization. No acute fracture of the sacrum or coccyx is not identifi ed. Sacroiliac joints are symmetric. IMPRESSION: Bony demineralization. No acute abnormality seen at the sacrum or coccyx. Electronically signed by: Janelle Wall MD (10/30/2020 8:42 PM) SERGIO
== END | disposition home or self-care (01) ==
LOC: RAD 15:13
PROVIDERS: ATTEND Anesthesiology
DX: M53.3 Sacrococcygeal disorders, not elsewhere classified (principal); I10 Essential (primary) hypertension; E78.00 Pure hypercholesterolemia, unspecified; E11.9 Type 2 diabetes mellitus without complications; J45.909 Unspecified asthma, uncomplicated; K21.9 Gastro-esophageal reflux disease without esophagitis; F32.9 Major depressive disorder, single episode, unspecified; M19.90 Unspecified osteoarthritis, unspecified site; Z90.49 Acquired absence of other specified parts of digestive tract; Z90.710 Acquired absence of both cervix and uterus; Z98.890 Other specified postprocedural states; Z79.84 Long term (current) use of oral hypoglycemic drugs; Z79.899 Other long term (current) drug therapy; Z88.2 Allergy status to sulfonamides; Z88.8 Allergy status to other drugs, medicaments and biological substances; W19.XXXA Unspecified fall, initial encounter; Y93.89 Activity, other specified; Y92.89 Other specified places as the place of occurrence of the external cause; Y99.8 Other external cause status
CPT/HCPCS: 72220